=== PATIENT | male | born 1955 | race Caucasian/White ===

== ENCOUNTER 2016-11-09 23:40 | Observation (INO) | payer SELFPAY ==
--- NOTE | ~2016-11-09 | HP ---
History And Physical [place] [id number] [facility] [place]. [address] NAME: BILLY LR : 53 STATUS : ADM Burt PAT#: [id number] AGE: 61 ADM/REG DATE : 11/09/16 MR#: [id number] REPORT SERV DATE: 11/10/16 DICTATED BY: TANNER AU DATE: 11/10/16 REPORT STATUS : Draft TRANSCRIBED BY: MODEcho DATE: 11/10/16 DATE OF ADMISSION: 11/09/2016 CHIEF COMPLAINT: Elevated blood pressure and chest pressure. HISTORY OF PRESENT ILLNESS: Pleasant, 61-year-old, white gentleman with no known history of CAD, states that over the past several weeks he has noticed his blood pressure more elevated, generally 150/90, but over the last several days as high as 180/100 plus. The patient states that over the last several days he has experienced episodic left-sided chest pain described as a pressure with associated shortness of breath, nausea, and dizziness. Denies any diaphoresis or belching. At its most intense, he rates the chest pain a 5/10. At time of interview in the [facility], he is pain free. The episodes last "few minutes in duration." They occur randomly. There is no exertional component. He reports no change in his activity. The patient denies any personal history of myocardial infarction, stroke, DVT, or pulmonary embolus. The patient denies any recent fever or chills, no palpitations, no syncopal episodes. Denies PND or orthopnea. Of note, his LATOYA inhibitor was increased to 20 mg twice daily, three months ago. He states he has tried hydrochlorothiazide in the past with a recommendation for that not to be used given his gout and arthritic condition with that suggestion from his furniture painter. PAST MEDICAL HISTORY: 1. Hypertension. 2. Cholesterol per PCP and reportedly fine. 3. Depression. 4. Gout. 5. Arthritis. 6. Denies diabetes. 7. Occasional cigar smoker. SURGICAL HISTORY: Lumbar surgery and tonsillectomy. SOCIAL HISTORY: He is with three children. Currently unemployed. Does not have an exercise routine. Occasionally smokes a cigar. Denies alcohol or illicit's. FAMILY HISTORY: Father of a stroke at the age of 75. REVIEW OF SYSTEMS: Fourteen-point review of systems performed, significant for HPI including home blood pressures of 150/90, but over the last three days 180/100+. Otherwise, complete review of systems obtained and negative. ALLERGIES: PENICILLIN, RASH. History And Physical [address] [place]. [address] NAME: BILLY RL : 53 STATUS : ADM Burt PAT#: [id number] AGE: 61 ADM/REG DATE : 11/09/16 MR#: [id number] REPORT SERV DATE: 11/10/16 DICTATED BY: TANNER AU DATE: 11/10/16 REPORT STATUS : Draft TRANSCRIBED BY: TOMA DATE: 11/10/16 HOME MEDICATIONS: Allopurinol 300 mg daily, Prozac 10 mg daily, hydrocodone 10/325 every four hours p.r.n., lisinopril 20 mg twice daily, meloxicam 15 mg daily. PHYSICAL EXAMINATION: VITAL SIGNS: Bilateral blood pressures on arrival are right 153/85, left 165/82, this morning 159/79, pulse 94, respirations 22, temperature 98.2, O2 saturation 97% on room air, height 5 feet 11 inches, weight 223 pounds, BMI 31. GENERAL: Cooperative, in no apparent distress. HEENT: Pupils 2 mm, sclera nonicteric. Nares patent. Moist mucous membranes. No xanthelasma. NECK: Trachea midline, no thyromegaly. No JVD. No bruits. LYMPH: No cervical lymphadenopathy. No supraclavicular lymphadenopathy. RESPIRATORY: Unlabored respirations. Breath sounds clear bilaterally to posterior auscultation. No wheezes or rhonchi. CARDIOVASCULAR: Regular rate. No murmur, rub or gallop appreciated. Extremities without edema. Pulses 2+ bilaterally. ABDOMEN: Soft, nontender, nondistended, normal bowel sounds auscultated throughout. No organomegaly. SKIN: Warm, dry extremities. No pallor, or cyanosis. PSYCHIATRIC: Appropriate affect. Alert, oriented x3. LABORATORY DATA: Troponin less than 0.02 twice. Potassium 4.0, BUN 20, creatinine 1.15, glucose 152, magnesium 1.9. WBC 11.7, hemoglobin 14.0, hematocrit 39.9, platelet count 215,000. EKG sinus rhythm, LAD. ASSESSMENT AND PLAN: 1. Atypical chest pain in patient with risk factors of hypertension. The patient has been observed in the CPOU overnight to rule out myocardial infarction with serial enzymes and serial EKGs and held n.p.o. We will proceed with MPI today. The patient will be discharged home if low risk, no ischemia. If anything suggestive of ischemia, Cardiology referral will be initiated. Otherwise, patient will be asked to follow up with PCP in one to two weeks with all studies being sent to that office. 2. Hypertension. Monitor blood pressure. Consider addition of amlodipine at discharge. Avoid hydrochlorothiazide per patient's request at his furniture painter suggestion. MARY/TOMA MAIRA Villaseñor, LABOR[address] RO[address]-[facility] / [id number] CC: MAIRA Villaseñor, [facility] [address] Michel Redman M.D.
[2016-11-10] LABS: BASOPHILS 0.6 %; BASOPHILS ABSOLUTE 0.07 10/3/uL (0.0-0.16); EOSINOPHILS 8.1 %; EOSINOPHILS ABSOLUTE 0.94 10/3/uL (0.0-0.53); HEMATOCRIT 39.9 % (40.0-51.0); IMMATURE GRANULOCYTES 0.2 %; IMMATURE GRANULOCYTES ABSOLUTE 0.02 10/3/uL (0.0-0.11); LYMPHOCYTES ABSOLUTE 4.08 10/3/uL (0.67-4.30); MANUAL DIFF NO %; MEAN CORPUS HGB CONC 35.1 g/dL (32.0-36.0); MEAN CORPUSCULAR HEMOGLOB 31.4 pg (26.0-34.0); MEAN CORPUSCULAR VOLUME 89.5 fL (80-100); MEAN PLATELET VOLUME 9.2 fL (9.2-13.0); MONOCYTES 7.1 %; MONOCYTES ABSOLUTE 0.83 10/3/uL (0.21-1.20); NEUTROPHILS ABSOLUTE 5.72 10/3/uL (2.02-8.40); PLATELET COUNT 215 10/3/uL (150-400); RED CELL COUNT 4.46 10/6/uL (4.7-6.1); WHITE BLOOD CELLS 11.7 10/3/uL (4.5-10.5)
[2016-11-10 00:07] LABS: INTERNATIONAL NORMAL RATI 1.1 UNITS (-); PROTIME (NOT ORD) 14.1 SEC (12.0-14.5)
[2016-11-10 00:08] LABS: PARTIAL THROMBO TIME 32.9 SEC (22.5-37.2)
[2016-11-10 00:21] LABS: BUN (BLOOD UREA NITROGEN) 20 MG/DL (6-23); CALCIUM, SERUM 8.7 MG/DL (8.5-10.4); CHEST PAIN PROFILE TAT 0 Hrs 27 Mins; CHLORIDE, SERUM 107 MMOL/L (96-112); CO2 (CARBON DIOXIDE) 26 MMOL/L (24-34); CREATININE 1.15 MG/DL (0.70-1.30); GFR AFRICAN AMERICAN 79 ML/MIN (>=60); GFR NON AFRICAN AMERICAN 68 ML/MIN (>=60); SODIUM, SERUM 141 MMOL/L (135-148); TROPONIN I <0.02 NG/ML (<0.05)
[2016-11-10 00:22] LABS: GLUCOSE, SERUM 152 MG/DL (60-99); POTASSIUM, SERUM 3.4 MMOL/L (3.5-5.3)
[2016-11-10] MEDS ORDERED: Z300 PO (04:38)
[2016-11-10] MEDS ORDERED: MOBIC15 MG PO (04:39)
[2016-11-10] MEDS ORDERED: PROZ10 PO (04:39)
[2016-11-10] MEDS ORDERED: NORCO1 TAB PO (04:40)
[2016-11-10] MEDS ORDERED: PRIN20 PO (04:40)
[2016-11-10 07:24] LABS: TROPONIN I <0.02 NG/ML (<0.05)
== END 2016-11-10 12:43 | disposition home or self-care (01) ==
LOC: ER 23:40 → CDU1 23:59 → CDU2 11-10 02:00
PROVIDERS: Clinical Nurse Specialist; Specialist
DX: R07.89 Other chest pain (principal); I10 Essential (primary) hypertension; F32.9 Major depressive disorder, single episode, unspecified; M19.90 Unspecified osteoarthritis, unspecified site; Z87.891 Personal history of nicotine dependence; Z98.890 Other specified postprocedural states; Z88.0 Allergy status to penicillin; Z79.899 Other long term (current) drug therapy
CPT/HCPCS: 71020; 78452; 80048; 83735; 84132; 84484; 85025; 85610; 85730; 93005; 93017; 99285; A9270-GY; A9502; G0378